=== PATIENT | female | born 1985 | race Caucasian/White ===

== ENCOUNTER → 2019-09-18 08:30 | Outpatient (CLI) | payer BC, SELFPAY ==
--- NOTE | ~2019-09-18 | US_ITS ---
EXAMINATION: US abdomen limited EXAM DATE: 09/18/2019 08:58 INDICATION: Right upper quadrant pain. Diarrhea. TECHNIQUE: Multiple grayscale and Doppler images of the abdomen right upper quadrant were obtained (b y a technologist who performed the scan) and subsequently reviewed. There is no prior study for tim martinez. FINDINGS: The pancreatic head and body are normal in appearance. The pancreatic tail is not visualized. The l iver has normal echogenicity and contour. There is mildly hypoechoic liver lesion measuring 3.1 x 2.0 x 3.1 cm, nonspecific by ultrasound. Dori elation was made with CT abdomen pelvis scans 03/18/2018 and 11/12/2014, MRI abdomen 04/23/2018. This le pennie is likely one of the hyperenhancing liver masses identified on that exam which was suspected mos t likely benign process, but for which a follow-up MRI was recommended. There is no evidence of intra hepatic biliary duct dilation. Portal venous flow was seen in the hepatopedal, normal direction and has normal Doppler waveform. No right-sided hydronephrosis. Common bile duct measures 3 mm, which is normal. The gallbladder wall is normal in thickness, with ex pected amount of distention. No sonographic evidence of pericholecystic fluid. There is no cholelit hiases. Technologist performing exam reports patient did not demonstrate sonographic Sheldon's sign. Please note that this sign is less reliable in patients who have received pain medication. IMPRESSION: 1. Nonspecific liver lesion, most likely benign histology but correlate with prior MRI report from 2 018. 2. No acute findings. Reviewed, dictated and finalized at location B. [employer] HE[employer] CONSULTANT IMPRESSION: 1. Nonspecific liver lesion, most likely benign histology but correlate with p rior MRI report from 2018. 2. No acute findings.
== END ==
PROVIDERS: PCP Family Medicine; Visit Provider Family Medicine
DX: R10.11 Right upper quadrant pain (principal); K76.9 Liver disease, unspecified
CPT/HCPCS: 76705

== ENCOUNTER 2019-09-28 08:38 | Outpatient (CLI) | payer BC, SELFPAY ==
--- NOTE | ~2019-09-28 | CT_ITS ---
EXAMINATION: CT abdomen wo/w con INDICATION: Hepatomegaly, not elsewhere specified TECHNIQUE: Computed tomographic images of the abdomen were obtained prior to and after the administra tion of 100 cc of Omnipaque 350 intravenous contrast in the arterial and portal venous phases. The do se-length product (DLP) was 1291.90 mGy-cm. Automated exposure control and iterative reconstruction t echnique were employed. COMPARISON: 03/18/2018; MRI, 04/23/2018 FINDINGS: There are subtle nodular opacities of the left lower lobe. The heart size is normal. At [address] five arterially enhancing masses with portal venous phase washout are noted in the liver. Masses m easuring 2.6 and 2.3 cm in the right hepatic lobe previously measured 2.0 and 1.6 cm, respectively. A 1.2 cm mass of the left hepatic lobe previously measured 0.8 cm. Subtle masses in liver segment II m easuring 3.1 and 1.7 cm previously measured 2.7 and 1.5 cm, respectively. There are no pathologically enlarged abdominal lymph nodes. The mass, pancreas, gallbladder, and adrenal glands are normal. The kidneys are unremarkable. There are no dilated loops of bowel. There is a moderate-sized umbilical he rnia containing fat. IMPRESSION: 1. Enhancing liver masses with interval growth since the comparison examination. Although findings ar e likely benign in the absence of known malignancy or chronic liver disease, biopsy is recommended du e to interval growth. This can likely be achieved using ultrasound guidance. Reviewed, dictated and finalized at location A. DESIGNER IMPRESSION: 1. Enhancing liver masses with interval growth since the comparison examination . Although findings are likely benign in the absence of known malignancy or chr onic liver disease, biopsy is recommended due to interval growth. This can like ly be achieved using ultrasound guidance.
[2019-09-28 09:49] LABS: Blood Urea Nitrogen 13 mg/dL (8-26); Estimated Glomerular Filt Rate > 60
== END 2019-09-28 08:39 ==
PROVIDERS: PCP Family Medicine; Visit Provider Nurse Practitioner Family
DX: R16.0 Hepatomegaly, not elsewhere classified (principal)
CPT/HCPCS: 74170; Q9967

== ENCOUNTER 2019-10-06 07:39 | Outpatient (CLI) | payer BC, SELFPAY ==
[2019-10-02 09:27] VITALS: BMI 27.4
[2019-10-06] VITALS (11 sets, daily range): BP systolic 98–131; BP diastolic 58–75; PULSE 55–70; RESP 14–18; TEMP 36.6; O2SAT 97–99
--- NOTE | ~2019-10-06 | US_ITS ---
EXAMINATION: US biopsy liver DATE: 10/06/2019 10:39 INDICATION: Liver mass TECHNIQUE: The procedure including the risks and benefits was discussed with the patient. Risks discu ssed included bleeding and infection. The patient understood the risks and agreed to proceed. The sk in overlying the liver was prepped and draped in usual sterile fashion. Anesthetic was administered with 1% lidocaine subcutaneously. An 18 gauge core biopsy needle was advanced under continuous ultra sound observation to the lesion of interest. 3 core biopsy specimens were obtained. The needle was removed and the entry site was cleaned and dressed. Post procedure ultrasound demonstrated no hemorr yamilka. FINDINGS: Ultrasound images demonstrate a couple subtle hypoechoic masses in the right hepatic lobe a nd more superolateral mass measuring 2.9 x 1.7 x 2.2 cm and a more inferomedial mass measuring 2.5 x 1.8 x 2.4 cm. Final images demonstrate the biopsy needle advanced into the more inferomedial of the m asses of concern. IMPRESSION: 1. Successful Ultrasound-guided biopsy of one of a pair of 2-3 cm masses in the right hepatic lobe. Reviewed, dictated and finalized at location A. TIONAL REHABILITATION TECHNICIAN
[2019-10-06 08:17] LABS: Platelet Count Result 407 k/mm3 (150-375)
[2019-10-06 08:26] LABS: INR 0.9
--- NOTE | 2019-10-06 12:48 | SUR.PHASEII ---
1018; DR CARRINGTON CALLED WITH UPDATE PRIOR TO PT ARRIVAL IN OP. PT C/O 01/12 PAIN TO ABDOMEN. INSTRUCTED TO WATCH PT FOR 10 MINUTES, THEN IF STILL HAVING PAIN. MAY GIVEN 1MG MORPHINE IVP. 1025; PT ARRIVED PER W/C. C/O PAIN -01/12. ABDOMEN SOFT. BANDAID TO RUQ D/I. 1035; PT STATES RELIEF OF PAIN NOW. NO PAIN AT ALL.
--- NOTE | 2019-10-06 12:49 | SUR.PHASEII ---
1230; PT GIVEN CLEAR LIQUIDS TO SIP ON. DENIES PAIN.
--- NOTE | 2019-10-06 14:29 | SUR.PHASEII ---
1420; PT AWAKE AND ALERT. DENIES PAIN. ABDOMEN SOFT. BANDAID D/I. CALLED DR CARRINGTON. UPDATED. 1429; DR CARRINGTON IN ROOM SPEAKING TO PT.
--- NOTE | 2019-10-06 14:38 | SUR.PHASEII ---
1432; PT MAY GO HOME.
== END 2019-10-06 14:32 | disposition home or self-care (01) ==
PROVIDERS: Radiology Diagnostic Radiology; PCP Family Medicine; Visit Provider Family Medicine
DX: K76.9 Liver disease, unspecified (principal)
CPT/HCPCS: 36415; 47000; 76942; 85049; 85610; 88307; 88312; 88313

== ENCOUNTER 2019-12-04 11:54 | Outpatient (CLI) | payer OTHER, BC, SELFPAY ==
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
== END 2019-12-04 11:55 | disposition home or self-care (01) ==
PROVIDERS: PCP Nurse Practitioner; Visit Provider Nurse Practitioner
DX: S16.1XXA Strain of muscle, fascia and tendon at neck level, initial encounter (principal); V89.2XXA Person injured in unspecified motor-vehicle accident, traffic, initial encounter
CPT/HCPCS: 72050

== ENCOUNTER 2020-06-16 17:09 | Emergency (ER) | payer OTHER, BC, SELFPAY ==
[2020-06-16 17:20] VITALS: BP 125/66; PULSE 93; RESP 16; TEMP 36.4; O2SAT 99
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
[2020-06-16] MEDS: AZITHROMYCIN 250 MG TABLET 1000 MG PO (17:54)
[2020-06-16] MEDS: cefTRIAXone 250 MG VIAL IM (17:54)
== END 2020-06-16 18:10 | disposition home or self-care (01) ==
PROVIDERS: Emergency Provider Nurse Practitioner
DX: B37.49 Other urogenital candidiasis (principal); Z20.2 Contact with and (suspected) exposure to infections with a predominantly sexual mode of transmission; F17.210 Nicotine dependence, cigarettes, uncomplicated; F33.9 Major depressive disorder, recurrent, unspecified
CPT/HCPCS: 81003; 81025; 87491; 87591; 87661; 96372; 99214; A9270; G0463; J0696

== ENCOUNTER 2020-08-23 09:09 | Outpatient (CLI) | payer OTHER, BC, SELFPAY ==
[2020-08-29 07:39] LABS: Gliadin AB, IgG 3 Units (<20); Reticulin IgA Negative (Negative); TTG IGA AB 1 U/mL (<4)
== END 2020-08-23 09:10 | disposition home or self-care (01) ==
PROVIDERS: PCP Nurse Practitioner
DX: R14.0 Abdominal distension (gaseous) (principal)
CPT/HCPCS: 36415; 83516; 86255

== ENCOUNTER 2021-08-15 17:41 | Emergency (ER) | payer OTHER, BC, SELFPAY ==
[2021-08-15 17:56] VITALS: BP 135/56; PULSE 92; RESP 16; TEMP 38; O2SAT 98
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
[2021-08-15 18:28] VITALS: BP 135/56; PULSE 92; RESP 16; TEMP 38; O2SAT 98
== END 2021-08-15 18:42 | disposition home or self-care (01) ==
PROVIDERS: Emergency Provider Nurse Practitioner
DX: B34.9 Viral infection, unspecified (principal); F17.210 Nicotine dependence, cigarettes, uncomplicated; F33.9 Major depressive disorder, recurrent, unspecified
CPT/HCPCS: 87804; 99213; G0463

== ENCOUNTER → 2021-08-29 12:07 | Outpatient (CLI) | payer OTHER, BC, SELFPAY ==
--- NOTE | ~2021-08-29 | XR_ITS ---
EXAMINATION: XR chest 2V EXAM DATE: 08/29/2021 12:39 INDICATION: Cough, SOB . TECHNIQUE: Frontal and lateral projections of the chest obtained and reviewed. There is no prior debi dy for comparison. FINDINGS: The lungs are clear. There are no pleural effusions. The cardiomediastinal silhouette is within normal limits. There is no pneumothorax suspected. The bones and soft tissues are unremarkab le. IMPRESSION: Normal chest x-ray exam. Reviewed, dictated and finalized at location A. FITTER IMPRESSION: Normal chest x-ray exam.
== END ==
PROVIDERS: PCP Family Medicine; Visit Provider Family Medicine
DX: R05.9 Cough, unspecified (principal)
CPT/HCPCS: 71046

== ENCOUNTER 2022-10-25 11:31 | Outpatient (CLI) | payer BC, SELFPAY ==
[2022-10-25 12:22] LABS: Basophils Absolute Auto 0.1 K/mm3 (0.0-0.1); Basophils Percent Auto 0.8 % (0.2-1.2); Eosinophils Absolute Auto 0.1 K/mm3 (0-0.3); Eosinophils Percent Auto 1.4 % (0-4.4); Hematocrit 42.7 % (37.0-47.0); Lymphocytes Absolute Auto 2.45 K/mm3 (0.9-3.2); Lymphocytes Percent Auto 38.6 % (18.3-44.2); Mean Corpuscular HGB Conc 32.8 g/dl (32-36); Mean Corpuscular Hemoglobin 27.7 pg (26-34); Mean Corpuscular Volume 84.6 fl (80-100); Mean Platelet Volume 10.2 fl (7.4-10.4); Monocytes Absolute Auto 0.5 K/mm3 (0.1-0.6); Monocytes Percent Auto 7.1 % (2.6-8.5); Neutrophils Absolute Auto 3.3 K/mm3 (1.3-6.7); Neutrophils Percent Auto 52.1 % (45.5-73.1); Platelet Count Result 468 k/mm3 (150-375); Red Blood Count 5.05 M/mm3 (4.2-5.4); Red Cell Distribution Width 13.3 % (11.5-14.5); White Blood Count 6.3 K/mm3 (4.5-10.0)
== END 2022-10-25 11:32 | disposition home or self-care (01) ==
LOC: ANHLAB 11:37
PROVIDERS: PCP Registered Nurse; Visit Provider Registered Nurse
DX: Z13.220 Encounter for screening for lipoid disorders (principal); Z13.29 Encounter for screening for other suspected endocrine disorder; Z13.0 Encounter for screening for diseases of the blood and blood-forming organs and certain disorders involving the immune mechanism
CPT/HCPCS: 36415; 84443; 85025

== ENCOUNTER 2023-09-19 08:52 | Emergency (ER) | payer BC, SELFPAY ==
--- NOTE | ~2023-09-19 | US_ITS ---
EXAMINATION: US pelvic complete DATE: 09/19/2023 12:17 INDICATION: Vaginal bleeding. Abdominal cramping. TECHNIQUE: Multiple transabdominal sonographic images of the pelvis were obtained. COMPARISON: None. FINDINGS: The uterus measures 7.7 x 3.8 x 4.8 cm. There is no free fluid in the pelvis. The endometrial complex measures 6 mm in thickness. The right ovary measures 2.6 x 1.5 x 1.9 cm. The left ovary measures 2.8 x 2.1 x 2.5 cm. There is normal vascular flow in the ovaries. IMPRESSION: 1. Normal pelvis. Reviewed, dictated and finalized at location A. RANNUATION FUNDS MANAGER IMPRESSION: 1. Normal pelvis.
[2023-09-19 09:06] VITALS: BP 127/70; PULSE 66; RESP 16; TEMP 36.6; O2SAT 100
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
[2023-09-19 12:42] LABS: Appearance Urine Clear (Clear); Bilirubin Urine Negative (Negative); Blood Urine Negative (Negative); Color Urine Yellow (Yellow); Glucose Urine UA Negative (Negative); Ketones Urine Negative (Negative); Leukocyte Esterase Ur Negative LEU/UL (Negative); Nitrate Urine Negative (Negative); Protein Urine Negative (Negative); Specific Grav Ur 1.006 (1.001-1.035); Urobilinogen Urine 0.2 mg/dL (<2.0); pH Urine 5.5 (5.0-9.0)
[2023-09-19 12:44] LABS: Add Urine Microscopic? NO
[2023-09-19 12:48] LABS: Basophils Absolute Auto 0.1 K/mm3 (0.0-0.1); Eosinophils Absolute Auto 0.1 K/mm3 (0-0.3); Eosinophils Percent Auto 1.2 % (0-4.4); Hematocrit 43.3 % (37.0-47.0); Hemoglobin 13.7 g/dL (12.0-15.0); Immature Granulocyte Absolute 0.01 K/mm3 (0.00-0.031); Immature Granulocyte Percent A 0.1 % (0-0.5); Lymphocytes Absolute Auto 2.21 K/mm3 (0.9-3.2); Lymphocytes Percent Auto 32.1 % (18.3-44.2); Mean Corpuscular HGB Conc 31.6 g/dl (32-36); Mean Corpuscular Volume 88.5 fl (80-100); Mean Platelet Volume 9.9 fl (7.4-10.4); Monocytes Absolute Auto 0.7 K/mm3 (0.1-0.6); Monocytes Percent Auto 10.3 % (2.6-8.5); Neutrophils Absolute Auto 3.8 K/mm3 (1.3-6.7); Neutrophils Percent Auto 55.3 % (45.5-73.1); Platelet Count Result 433 k/mm3 (150-375); Red Blood Count 4.89 M/mm3 (4.2-5.4); Red Cell Distribution Width 13.4 % (11.5-14.5); White Blood Count 6.9 K/mm3 (4.5-10.0)
[2023-09-19 13:06] VITALS: BP 125/80; PULSE 63; RESP 14; O2SAT 100
[2023-09-19] MEDS: DICYCLOMINE HCL INJ 20 MG/2 ML VIAL IM (13:09)
[2023-09-19 13:10] LABS: Alanine Aminotransferase 17 U/L (6-35); Albumin Level 4.6 g/dL (3.5-5.1); Alkaline Phosphatase 94 U/L (38-126); Anion Gap 8 mmol/L (8-16); Aspartate Amino Transferase 28 U/L (14-36); Bilirubin,Total 0.5 mg/dL (0.2-1.3); Blood Urea Nitrogen 12 mg/dL (7-17); Calcium 9.7 mg/dL (8.4-10.2); Carbon Dioxide 27 mmol/L (22-30); Chloride 103 mmol/L (98-107); Estimated CRCL calculation 124 ml/min; Estimated Glomerular Filt Rate > 60; Glucose 97 mg/dL (65-110); Lipase 154 U/L (23-300); Sodium 138 mmol/L (137-145)
[2023-09-19] MEDS: BELLADONNA ALK/PHENOB ELIX 10 ML, MAG HYDROX/ALUMINUM HYD/SIMETH 30 ML, LIDOCAINE HCL 2... PO (13:10)
[2023-09-19] MEDS: ACETAMINOPHEN 500 MG TABLET 1000 MG PO (13:11)
[2023-09-19] MEDS: PANTOPRAZOLE 40 MG TABLET PO (13:11)
[2023-09-19 13:16] LABS: Influenza A QL RT-PCR Negative (Negative); Influenza B QL RT-PCR Negative (Negative); RSV RNA, RT-PCR Negative (Negative); SARS-CoV-2 RNA PCR Negative (Negative)
[2023-09-19 13:22] LABS: Potassium 4.3 mmol/L (3.4-5.0)
[2023-09-19 13:56] VITALS: BP 129/88; PULSE 55; RESP 14; TEMP 36.4; O2SAT 100
== END 2023-09-19 14:00 | disposition home or self-care (01) ==
PROVIDERS: Emergency Provider Student in an Organized Health Care Education/Training Program; PCP Registered Nurse
DX: N93.8 Other specified abnormal uterine and vaginal bleeding (principal); B34.9 Viral infection, unspecified; K21.9 Gastro-esophageal reflux disease without esophagitis; Z20.822 Contact with and (suspected) exposure to COVID-19; F98.8 Other specified behavioral and emotional disorders with onset usually occurring in childhood and adolescence; F33.8 Other recurrent depressive disorders; Z87.891 Personal history of nicotine dependence
CPT/HCPCS: 36415; 76856; 80053; 81003; 83690; 85025; 87637; 96372; 99284; A9270; J0500

== ENCOUNTER 2023-10-03 09:05 | Outpatient (CLI) | payer BC, SELFPAY ==
[2023-10-07 14:21] LABS: FSH 5.6 mIU/mL (***); Progesterone 0.6 ng/mL (***); Prolactin 6.2 ng/mL (***)
[2023-10-09 09:27] LABS: Testosterone Total 38 ng/dL (2-45)
[2023-10-11 01:56] LABS: Estradiol, Ultrasensitive 393 pg/mL
== END 2023-10-03 09:06 | disposition home or self-care (01) ==
PROVIDERS: PCP Registered Nurse; Visit Provider Obstetrics & Gynecology
DX: N92.0 Excessive and frequent menstruation with regular cycle (principal)
CPT/HCPCS: 36415; 82670; 83001; 84144; 84146; 84403; 84443

== ENCOUNTER 2024-09-14 08:11 | Emergency (ER) | payer OTHER, SELFPAY ==
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
[2024-09-14 08:21] VITALS: BP 121/73; PULSE 78; RESP 16; TEMP 36.6; O2SAT 100
[2024-09-14 08:45] LABS: EDSTREPNEGPOS1 Negative (Negative)
== END 2024-09-14 08:45 | disposition home or self-care (01) ==
PROVIDERS: Emergency Provider Nurse Practitioner; PCP Registered Nurse
DX: H65.03 Acute serous otitis media, bilateral (principal); J02.9 Acute pharyngitis, unspecified; F17.290 Nicotine dependence, other tobacco product, uncomplicated; F98.8 Other specified behavioral and emotional disorders with onset usually occurring in childhood and adolescence; F33.9 Major depressive disorder, recurrent, unspecified
CPT/HCPCS: 87081; 87880; 99213; G0463

== ENCOUNTER 2024-10-05 18:53 | Emergency (ER) | payer OTHER, SELFPAY ==
[2024-10-05 19:04] VITALS: BP 128/69; PULSE 92; RESP 16; TEMP 36.7; O2SAT 99
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
[2024-10-05 19:33] LABS: EDCOVIDSCREEN Negative (Negative); EDINFLUASCREEN Negative (Negative); EDINFLUBSCREEN Negative (Negative)
== END 2024-10-05 19:30 | disposition home or self-care (01) ==
PROVIDERS: Emergency Provider Nurse Practitioner Family; PCP Nurse Practitioner
DX: H66.91 Otitis media, unspecified, right ear (principal); Z20.822 Contact with and (suspected) exposure to COVID-19; F17.290 Nicotine dependence, other tobacco product, uncomplicated; F98.8 Other specified behavioral and emotional disorders with onset usually occurring in childhood and adolescence; F33.9 Major depressive disorder, recurrent, unspecified
CPT/HCPCS: 87426; 87804; 99213; G0463